=== PATIENT | male | born 1940 | race Caucasian/White ===

== ENCOUNTER 2020-10-20 10:27 | Emergency (ER) | payer MEDICARE, OTHER ==
[2020-10-20] MEDS ORDERED: ZOFRAN4 MG PO (13:33)
[2020-10-20] MEDS ORDERED: AFRIN15 M1 (13:33)
== END 2020-10-20 13:57 | disposition home or self-care (01) ==
LOC: ER1 10:27
DX: J32.9 Chronic sinusitis, unspecified (principal); R11.0 Nausea; R63.0 Anorexia; I10 Essential (primary) hypertension; Z95.5 Presence of coronary angioplasty implant and graft; Z20.822 Contact with and (suspected) exposure to COVID-19
CPT/HCPCS: 0240U; 87081; 87880; 99283

== ENCOUNTER → 2021-05-17 | Outpatient (CLI) | payer OTHER ==
[~2021-05-17] MED LIST: AFRIN15 M1; ZOFRAN4 MG PO
== END ==
LOC: HEART 5 12:42
DX: R06.02 Shortness of breath (principal)
CPT/HCPCS: 93306

== ENCOUNTER 2021-07-15 11:42 | Emergency (ER) | payer OTHER ==
[2021-07-15 12:17] LABS: HEMOGLOBIN 16.6 gm/dl (14.0-17.5); RED BLOOD COUNT 4.98 M/UL (4.20-5.50)
[2021-07-15 12:51] LABS: BUN/CREATININE RATIO 8 (0-10)
[2021-07-15] MEDS ORDERED: PROTONIX40 MG PO (14:50)
[2021-07-15] MEDS ORDERED: ZOFRAN ODT 4 MG4 MG SL (14:50)
== END 2021-07-15 15:02 | disposition home or self-care (01) ==
LOC: ER1 11:42
PROVIDERS: Physician Assistant
DX: F41.9 Anxiety disorder, unspecified (principal); R06.02 Shortness of breath; R12 Heartburn; I11.9 Hypertensive heart disease without heart failure; I48.91 Unspecified atrial fibrillation; Z20.822 Contact with and (suspected) exposure to COVID-19
CPT/HCPCS: 71045; 80053; 82550; 82553; 83874; 83880; 84484; 85025; 93005; 96374; 96375; 99285; J2405; U0002

== ENCOUNTER 2021-11-18 18:07 | Emergency (ER) | payer OTHER ==
[~2021-11-18 18:07] MED LIST changes: +PROTONIX40 MG PO; +ZOFRAN ODT 4 MG4 MG SL
[2021-11-18] MEDS ORDERED: ONDANSETRON ODT4 MG SL (20:23)
[2021-11-18] MEDS ORDERED: CORICIDIN HBP1 EACH PO (20:23)
== END 2021-11-18 21:03 | disposition home or self-care (01) ==
LOC: ER1 18:07
DX: J06.9 Acute upper respiratory infection, unspecified (principal); R11.0 Nausea; Z20.822 Contact with and (suspected) exposure to COVID-19; I10 Essential (primary) hypertension; I48.91 Unspecified atrial fibrillation; Z79.01 Long term (current) use of anticoagulants
CPT/HCPCS: 0240U; 71045; 81001; 87081; 87086; 87880; 99283